=== PATIENT | male | born 1960 | race Hispanic/Latino ===

== ENCOUNTER 2024-09-20 15:52 | Emergency (ER) | payer OTHER ==
[~2024-09-20] VITALS: Ht 167.6 cm; Wt 89.4 kg
--- NOTE | 2024-09-20 16:10 | EKG ---
[facility] Test Date: 2024-09-20 Test Time: 16:06:55 Pat Name: ALFONZO COLON Department: EDH Room: Gender: M Driver Guide: [id number] : [id number] Requested By: MARY CHE Order Number: [id number] Reading MD: Terry Rodríguez Measurements Intervals [place] Rate: 76 P: 13 MO: 139 QRS: 8 QRSD: 92 T: -25 QT: 375 QTc: 422 Interpretive Statements Sinus rhythm Low voltage, precordial leads No previous ECG available for comparison Electronically Signed On 09-21-2024 07:17:25 CDT by Terry Rodríguez Please click the below link to view image of tracing.
[2024-09-20 16:16] LABS: BASOPHILS # (AUTO) 0.01 K/uL (0.00-0.20); BASOPHILS % (AUTO) 0.2 % (0.0-5.0); EOSINOPHILS # (AUTO) 0.24 K/uL (0.00-0.70); EOSINOPHILS % (AUTO) 4.3 % (0.0-8.0); HEMATOCRIT 39.1 % (42-54); IMMATURE GRANULOCYTE ABSOLUTE 0.04 K/uL (0-1); LYMPHOCYTES # (AUTO) 1.5 K/uL (1.0-4.8); LYMPHOCYTES % (AUTO) 27.6 % (21.0-51.0); MEAN CORPUSCULAR HEMOGLOBIN 30.5 pg (27.0-33.0); MEAN CORPUSCULAR HGB CONC 34.3 g/dL (32.0-36.0); MEAN CORPUSCULAR VOLUME 88.9 fL (79-99); MONOCYTES # (AUTO) 0.4 K/uL (0.1-1.0); MONOCYTES % (AUTO) 6.8 % (3.0-13.0); NEUTROPHILS # (AUTO) 3.4 K/uL (1.8-7.7); NEUTROPHILS % (AUTO) 60.4 % (40.0-77.0); PLATELET COUNT (AUTO) 171 K/uL (130-400); RED CELL DISTRIBUTION WIDTH 13.5 % (11.0-15.5); WHITE BLOOD COUNT (AUTO) 5.6 K/uL (4.8-10.8)
--- NOTE | 2024-09-20 16:19 | ERN ---
General Chief Complaint: Mechanical Fall Stated Complaint: FALL Time Seen by MD: 15:53 Source: patient History of Present Illness Initial Comments PATIENT IS A 64-YEAR-OLD MALE COMING IN COMPLAINING OF BACK PAIN. PATIENT WAS HAS A AN EXTENSIVE HISTORY OF BACK PAIN WHICH HAS BEEN EVALUATED BY PCP IN HIS PENDING AN MRI. [place] SLIPPED FELL DOWN AND LANDED IN HIS BOTTOM. HE STATES THAT THE BACK WAS HURTING EVEN MORE. DECIDED TO COME IN FOR FURTHER EVALUATION. Allergies: Coded Allergies: ibuprofen (Unverified Allergy, Unknown, 09/20/24) Past Medical History Past Medical History: Diabetes-Type II Past Surgical History: Cholecystectomy, Other Surgical History Other: CARDIAC STENT ROS Dictation CONSTITUTIONAL: NO CHILLS, NO FEVER, NO WEAKNESS, NO DIAPHORESIS, NO MALAISE. HEAD/FACE: NO SIGNS OF TRAUMA. EENT: NO EYE PAIN, NO BLURRED VISION, NO TEARING, NO DOUBLE VISION, NO EAR PAIN, NO EAR DISCHARGE, NO NOSE PAIN, NO NASAL CONGESTION, NO THROAT PAIN, NO THROAT SWELLING, NO MOUTH PAIN. RESPIRATORY: NO COUGH, NO ORTHOPNEA, NO SOB, NO STRIDOR, NO WHEEZING. CARDIOVASCULAR: NO CHEST PAIN, NO EDEMA, NO PALPITATIONS, NO SYNCOPE. GASTROINTESTINAL/ABDOMINAL: NO ABDOMINAL PAIN, NO CONSTIPATION, NO DIARRHEA, NO NAUSEA, NO VOMITING. GENITOURINARY: NO ABNORMAL DISCHARGE, NO DYSURIA, NO FREQUENT URINATION, NO HEMATURIA. NO COMPLAINTS OF PAIN IN THE GENITALS. MUSCULOSKELETAL: BACK PAIN, NO GOUT, NO JOINT PAIN, NO JOINT SWELLING, NO MUSCLE PAIN, NO MUSCLE STIFFNESS, NO NECK PAIN. INTEGUMENTARY: NO CHANGE IN COLOR, NO CHANGE IN HAIR/NAILS, NO DRYNESS, NO LESION, NO LUMPS, NO RASH. NEUROLOGICAL/PSYCH: NO ANXIETY, NOT DEPRESSED, NO EMOTIONAL PROBLEM, NO HEADACHE, NO NUMBNESS, NO PRE-EXISTING DEFICIT, NO HISTORY OF SEIZURES, NO TREMORS, NO WEAKNESS. HEMATOLOGIC/LYMPHATIC: NOT ANEMIC, NO HISTORY OF BLOOD CLOTS, NO APPARENT BLEEDING, NO BRUISING, GLANDS NOT SWOLLEN. ALL SYSTEMS NEGATIVE, EXCEPT NOTED. Physical Exam Physical Exam Dictation VITAL SIGNS: REVIEWED. GENERAL APPEARANCE: ALERT, ORIENTED X3, NO ACUTE DISTRESS, OBESE. HEAD AND FACE: NON-TRAUMATIC. EYES: PERRL, PINK CONJUNCTIVAS, EYELID NO TRAUMA, ANTERIOR CHAMBER CLEAR. EARS: PINNAS INTACT AND NO SIGNS OF TRAUMA OR ERYTHEMA. EAR CANALS CLEAR AND NO DISCHARGE. TMS NO ERYTHEMA. NOSE: NO DISCHARGE, NO BLEEDING. OROPHARYNX: MOUTH NORMAL, TEETH NO CARIES, TONGUE PINK. PHARYNX CLEAR, NO ERYTHEMA. TONSILS NO EXUDATES, NO ABSCESSES NOTED. MUCOUS MEMBRANE MOIST. NECK: SUPPLE, NON-TENDER, NO THYROMEGALY, NO MASSES, NO JVD, NO BRUITS. BREAST: DEFERRED. CHEST: NO TENDERNESS, NO CREPITUS, NO PARADOXICAL MOVEMENT, NO RETRACTIONS. LUNGS: CLEAR, WELL-VENTILATED, SYMMETRIC, NO RALES, NO WHEEZING, NO RHONCHI, NO STRIDOR, GOOD BREATH SOUNDS BILATERALLY. HEART: REGULAR RATE, REGULAR RHYTHM, NO MURMUR, NO GALLOPS. VASCULAR: NO PERIPHERAL EDEMA. ABDOMEN: SOFT, POSITIVE BOWEL SOUNDS, NONDISTENDED, NO GUARDING, NONTENDER, NO REBOUND, NO MASSES NO HEPATOMEGALY, NO SPLENOMEGALY, NO LAINEZ'S SIGN, NO HERNIAS. RECTAL: DEFERRED. GENITAL: DEFERRED. NEUROLOGICAL: NORMAL SPEECH, GROSS MOTOR FUNCTION INTACT, GROSS SENSORY FUNCTION INTACT. 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 EXTREMITIES: NONTENDER, FULL RANGE OF MOTION. SKIN: COLOR PINK, DRY, NO TURGOR, NO RASH, NO LACERATIONS, NO ABRASIONS, NO CONTUSIONS. LYMPHATICS: DEFERRED. Results Laboratory and Microbiology Lab and Micro Result Laboratory Tests Test 09/20/24 16:10 09/20/24 17:20 White Blood Count 5.6 K/uL (4.8-10.8) Red Blood Count 4.40 MIL/uL (4.50-6.20) L Hemoglobin 13.4 g/dL (14.0-18.0) L Hematocrit 39.1 % (42-54) L Mean Corpuscular Volume 88.9 fL (79-99) Mean Corpuscular Hemoglobin 30.5 pg (27.0-33.0) Mean Corpuscular Hemoglobin Concent 34.3 g/dL (32.0-36.0) Red Cell Distribution Width 13.5 % (11.0-15.5) Platelet Count 171 K/uL (130-400) Mean Platelet Volume 9.1 fL (7.5-10.5) Immature Granulocyte % (Auto) 0.7 % (0-1) Neutrophils (%) (Auto) 60.4 % (40.0-77.0) Lymphocytes (%) (Auto) 27.6 % (21.0-51.0) Monocytes (%) (Auto) 6.8 % (3.0-13.0) Eosinophils (%) (Auto) 4.3 % (0.0-8.0) Basophils (%) (Auto) 0.2 % (0.0-5.0) Neutrophils # (Auto) 3.4 K/uL (1.8-7.7) Lymphocytes # (Auto) 1.5 K/uL (1.0-4.8) Monocytes # (Auto) 0.4 K/uL (0.1-1.0) Eosinophils # (Auto) 0.24 K/uL (0.00-0.70) Basophils # (Auto) 0.01 K/uL (0.00-0.20) Absolute Immature Granulocyte (auto 0.04 K/uL (0-1) Nucleated Red Blood Cells 0.0 % (0.0-0.19) Prothrombin Time 11.4 SEC (9.6-11.6) Prothromb Time International Ratio 1.08 (0.85-1.15) Sodium Level 137 mmol/L (136-145) Potassium Level 3.9 mmol/L (3.5-5.1) Chloride Level 105 mmol/L (101-111) Carbon Dioxide Level 30 mmol/L (21-32) Blood Urea Nitrogen 15 mg/dL (7-18) Creatinine 0.7 mg/dL (0.5-1.3) Glomerular Filtration Rate Calc 103 mL/min (>90) Random Glucose 106 mg/dL (70-105) H Total Calcium 9.2 mg/dL (8.5-10.1) Magnesium Level 1.60 mg/dL (1.80-2.40) L Total Creatine Kinase 167 U/L (21-232) Troponin I High Sensitivity 10 ng/L (4-75) B-Type Natriuretic Peptide 39 pg/mL (0-100) Urine Color YELLOW (YELLOW) Urine Appearance CLEAR (CLEAR) Urine pH 6.5 (5.0-8.0) Urine Specific Ellis 1.013 (1.001-1.031) Urine Protein NEGATIVE mg/dL (NEGATIVE) Urine Glucose (UA) 30 mg/dL (NEGATIVE) H Urine Ketones NEGATIVE mg/dL (NEGATIVE) Urine Occult Blood NEGATIVE (NEGATIVE) Urine Nitrate NEGATIVE (NEGATIVE) Urine Bilirubin NEGATIVE mg/dL (NEGATIVE) Urine Urobilinogen 0.2 mg/dL (0.2-1.0) Urine Leukocyte Esterase 500 Franklin/uL (NEGATIVE) H Urine RBC 2-5 /HPF (0-1) H Urine WBC 51-100 /HPF (0-1) H Urine Bacteria None /HPF (None Seen) Urine Hyaline Casts 2-5 /LPF (0-1 /LPF) H Labs Reviewed?: Yes MDM MDM: DIFFERENTIAL DIAGNOSIS: BACK PAIN, CHRONIC BACK PAIN, FALL, RATIONALE: TESTS CONSIDERED AND ORDERED SECONDARY TO SHARED DECISION MAKING INCLUDE: PREVIOUS OUTSIDE RECORDS REVIEWED: OLD ER VISITS. RISK OF COMPLICATION AND/OR MORBIDITY OR MORTALITY OF PATIENT MANAGEMENT: NONE MEDICATIONS-PER MEDICATION RECONCILIATION NEED FOR HOSPITALIZATION: PATIENT DOES NOT MEET CRITERIA FOR HOSPITALIZATION. NEED FOR EMERGENCY MAJOR/MINOR SURGERY: NO THERE ARE NO SOCIAL CONCERNS WITH THIS PATIENT. PRESCRIPTION DRUG MANAGEMENT PRESCRIPTIONS WILL INCLUDE SYMPTOMATIC CARE PATIENT'S PRIOR EXTERNAL MEDICAL RECORDS FROM OTHER ER VISITS WERE REVIEWED BY ME INDICATED. PRIOR TESTING AND RESULTS FROM PREVIOUS VISITS WERE REVIEWED. PRIOR TESTS WERE TAKEN INTO ACCOUNT WITH MEDICAL DECISION MAKING AND RESOURCE UTILIZATION, INDEPENDENT HISTORIAN/HISTORIANS WERE USED TO OBTAIN COMPLETE MEDICAL HISTORY. I INDEPENDENTLY INTERPRETED THE TEST THAT WERE PERFORMED, RESULTS WERE REVIEWED BY ME AND CONSIDERED FINDINGS ON RADIOLOGY IF ORDERED. MEDICAL MANAGEMENT AND EXAMINATION INTERPRETATION DISCUSSIONS WERE HAD BY ME WITH OTHER QUALIFIED HEALTHCARE PROFESSIONALS INDICATED FOR THE PATIENT'S CARE. PATIENT IS A 64-YEAR-OLD MALE COMING IN TO BE EVALUATED FOR BACK PAIN. PATIENT STATES THAT HE HAS A EXTENSIVE HISTORY OF BACK PAIN IN HIS PENDING AN MRI. HE STATES THAT TODAY HE SLIPPED FELL DOWN LANDING IN HIS BUTTOCKS AND STATES THAT THE BACK PAIN IS WORSE. A PENDING CT. Scan of the lumbar sacral spine shows disc bulging and impinging on L4-L5 and to a lesser extent L5-S1. Patient needs to be transferred to [facility] for neurosurgery. ED Course Orders Procedure Category Date Status Time Cbc With Differential LAB 09/20/24 Complete 15:56 Prothrombin Time With LAB 09/20/24 Complete INR 15:56 B-Type Natriuretic LAB 09/20/24 Complete Peptide 15:56 Chest 1vw RAD 09/20/24 Resulted 15:56 12 Lead Ekg Tracing- EKG 09/20/24 Complete Technical 15:56 Lactated Ringers PHA 09/20/24 Complete 1000ml (Lactated 16:00 Magnesium LAB 09/20/24 Complete 15:56 Creatine Kinase, Total LAB 09/20/24 Complete 15:56 Troponin I High LAB 09/20/24 Complete Sensitivity 15:56 Urinalysis Profile LAB 09/20/24 Complete 15:56 Basic Metabolic Panel LAB 09/20/24 Complete 15:56 Orphenadrine Citrate PHA 09/20/24 Complete (Norflex) 16:30 Triamcinolone Acet PHA 09/20/24 Complete 40mg/Ml 1ml (Kenalog 16:30 Culture Urine GUNJAN 09/20/24 In Process 17:41 Ceftriaxone 1g Vial PHA 09/20/24 Complete (Rocephine 1g Inj) 18:00 Ct Lumbar Spine W/O CT 09/20/24 Resulted Contrast 17:59 Current Medications Medications (Trade) Dose Ordered Sig/Tai Route PRN Reason Start Time Stop Time Status Last Admin Dose Admin Ceftriaxone Sodium (ROCEphine 1G INJ) 1 gm ONCE ONCE IVPB 09/20/24 18:00 09/20/24 18:01 DC 09/20/24 18:10 Lactated Ringer's 1,000 ml @ 0 mls/hr ONCE ONCE IV 09/20/24 16:00 09/20/24 16:01 DC 09/20/24 16:32 Orphenadrine Citrate (Norflex) 60 mg ONCE ONCE IM 09/20/24 16:30 09/20/24 16:31 DC 09/20/24 16:31 Triamcinolone Acetonide (Kenalog 40) 40 mg ONCE ONCE IM 09/20/24 16:30 09/20/24 16:31 DC 09/20/24 16:31 Vital Signs Date Time Temp Pulse Resp B/P (MAP) Pulse Ox O2 Delivery O2 Flow Rate FiO2 09/20/24 19:39 98.1 69 17 123/78 97 Room Air* 0 09/20/24 18:36 68 18 108/75 97 Room Air* 0 21 09/20/24 17:33 98.2 70 18 122/76 97 Room Air* 0 21 09/20/24 15:53 97.3 88 16 129/74 98 Room Air DX & DISP Disposition: Transfer Departure Impression: Primary Impression: Disc disorder of lumbar region Additional Impression: UTI (urinary tract infection) Condition: Stable Referrals: SELF,REFERRAL (PCP) MARY CHE MD September 20, 2024 16:18 PROSPER DELAROSA MD September 20, 2024 21:47
[2024-09-20 16:26] LABS: INR 1.08 (0.85-1.15); PROTHROMBIN TIME 11.4 SEC (9.6-11.6)
[2024-09-20 16:30] LABS: CREATININE 0.7 mg/dL (0.5-1.3); MAGNESIUM 1.6 mg/dL (1.80-2.40); POTASSIUM 3.9 mmol/L (3.5-5.1)
[2024-09-20] MEDS: TRIAMCINOLONE ACETONIDE 40 MG/ML 1ML VIAL IM ONE (16:31)
[2024-09-20] MEDS: ORPHENADRINE 60MG/2ML IM ONE (16:31)
[2024-09-20] MEDS: LACTATED RINGERS 1000ML 1,000 ML IV ONE (16:32)
[2024-09-20 16:33] LABS: B-TYPE NATRIURETIC PEPTIDE 39 pg/mL (0-100)
--- NOTE | 2024-09-20 17:25 | HMCIMG ---
CHEST 1VW CLINICAL HISTORY: FALL COMPARISON: None TECHNIQUE: Single view of the chest was obtained. FINDINGS: There is mild right lower lobe atelectasis is unchanged. The cardiac size and mediastinum are unremarkable. The bony structures are within normal limits. IMPRESSION: Mild right lower lobe atelectasis or infiltrate.
[2024-09-20 17:40] LABS: APPEARANCE,URINE CLEAR (CLEAR); BILIRUBIN,URINE NEGATIVE (NEGATIVE); COLOR,URINE YELLOW (YELLOW); GLUCOSE, URINE (UA) 30 mg/dL (NEGATIVE); KETONES,URINE NEGATIVE (NEGATIVE); LEUKOCYTE ESTERASE ,URINE 500 Leu/uL (NEGATIVE); NITRATE,URINE NEGATIVE (NEGATIVE); OCCULT BLOOD,URINE NEGATIVE (NEGATIVE); PH,URINE 6.5 (5.0-8.0); PROTEIN,URINE NEGATIVE (NEGATIVE); UROBILINOGEN,URINE 0.2 mg/dL (0.2-1.0)
[2024-09-20 17:41] LABS: ADD UA MICROSCOPIC YES
[2024-09-20 17:43] LABS: MUCUS,URINE RARE LPF (None Seen); WBC,URINE 51-100 /HPF (0-1)
[2024-09-20] MEDS: cefTRIAXone 1G VIAL IVPB ONE (18:10)
--- NOTE | 2024-09-20 19:10 | NUR ---
PT CARE ASSUMED AT THIS TIME
--- NOTE | 2024-09-20 19:36 | HMCIMG ---
CT LUMBAR SPINE W/O CONTRAST CLINICAL HISTORY: FALL TECHNIQUE: Sequential axial images of lumbar spine without contrast and with sagittal and coronal reconstructions. CT was performed with one or more of the following dose reduction techniques: automated exposure control, adjustment of the mA and/or kV according to patient size, or use of iterative reconstruction technique COMPARISON: None FINDINGS: There is normal alignment of lumbar vertebrae. There is no vertebral body height loss or fractures. The prevertebral soft tissue is unremarkable. There is a diffusely bulging disc at L4-5 as well as articulating facet hypertrophy. Causing mild central canal and neural foraminal stenosis. There is similar findings at L5-S1 but less severe. IMPRESSION: There are no acute findings. Disc disease at L4-5 and L5-S1 causing central canal and neural foraminal stenosis.
[2024-09-20 19:39] VITALS: TEMP 98.1
[2024-09-20] MEDS: ketOROlac 30MG VIAL (30MG/ML) IVP ONE (22:00)
[2024-09-20] MEDS: CYCLOBENZAPRINE HCL 10 MG TABLET PO ONE (22:02)
--- NOTE | 2024-09-21 02:20 | NUR ---
TRANSFER CALL PLACED TO [facility] TO INITIATE TRANSFER FOR NEUROSURGERY SERVICES
--- NOTE | 2024-09-21 02:45 | NUR ---
BEDSIDE GLUCOSE CHECK DONE. RESULTED 116 mg/dL.
--- NOTE | 2024-09-21 03:20 | NUR ---
ED MD CREWS NOTIFIED ABOUT MAGNESIUM LEVEL. ORDERS GIVEN.
[2024-09-21] MEDS ORDERED: MAGNESIUM 2GM PREMIX 50ML 50 ML IV SCH (03:30)
--- NOTE | 2024-09-21 03:34 | NUR ---
REPORT GIVEN TO JENIFER GONZALEZ [facility] AT THIS TIME
[2024-09-21] MEDS ORDERED: MAGNESIUM 2GM PREMIX 50ML 50 ML IV ONE (03:37)
--- NOTE | 2024-09-21 03:42 | NUR ---
2G/50 ML MAGNESIUM SULFATE ADMINISTERED VIA IV AT THIS TIME. DOCUMENTATION NOTED IN NOTES DUE TO DOWN TIME.
--- NOTE | 2024-09-21 03:50 | NUR ---
TRANSFER PT. ACCEPTED BY DR. Mai SPANGLER FOR TRANSFER TO [facility]. PT. WILL GO TO A "HOLD." REPORT: [phone]
[2024-09-21 04:29] VITALS: BP 123/63; PULSE 76; RESP 18; O2SAT 96
--- NOTE | 2024-09-21 04:34 | NUR ---
EMS ARR[place] [facility] [place] TO [facility] ER AT THIS TIME.
--- NOTE | 2024-09-21 04:47 | NUR ---
EMS LEFT [facility] AT THIS TIME. PENDING ARRIVAL TO [facility].
== END 2024-09-21 04:47 | disposition short-term general hospital (02) ==
LOC: EDH 15:52
DX: M48.061 Spinal stenosis, lumbar region without neurogenic claudication (principal); N39.0 Urinary tract infection, site not specified; E11.9 Type 2 diabetes mellitus without complications; Z88.6 Allergy status to analgesic agent; Z90.49 Acquired absence of other specified parts of digestive tract; Z95.5 Presence of coronary angioplasty implant and graft; W01.0XXA Fall on same level from slipping, tripping and stumbling without subsequent striking against object, initial encounter; Y93.89 Activity, other specified; Y92.89 Other specified places as the place of occurrence of the external cause; Y99.8 Other external cause status
CPT/HCPCS: 99285; 96374; 72131; 71045; 96361; 96375; 96372 ×2; 82550; 83735; 84484; 80048; 83880; 85025; 85610; 87086 ×2; 87186; 82948; 81001; 36415; 93005; J1885; J7120; J0696; J3301; J3475; J2360